=== PATIENT | male | born 1975 | race Caucasian/White ===

== ENCOUNTER 2022-03-30 13:10 | Emergency (ER) | payer OTHER, SELFPAY ==
--- NOTE | ~2022-03-30 | XR_ITS ---
EXAMINATION: XR hand RT min 3V DATE: 03/30/2022 13:50 INDICATION: Right hand second digit laceration. TECHNIQUE: 3 views of right hand were obtained. COMPARISON: None. FINDINGS: Bone alignment is normal. No fracture. Joint spaces are normal. There is soft tissue swelli ng of the distal second digit. There is a 1 mm density dorsal and radial to base of second middle pha lanx. IMPRESSION: 1. 1 mm density dorsal and radial to base of second middle phalanx, which may be a foreign body or dy strophic calcification. Reviewed, dictated and finalized at location A. IMPRESSION: 1. 1 mm density dorsal and radial to base of second middle phalanx, which may b e a foreign body or dystrophic calcification.
[2022-03-30 13:25] VITALS: BP 143/98; PULSE 81; RESP 16; TEMP 36.6; O2SAT 98
--- NOTE | 2022-03-30 14:05 | ED.SKABFB ---
HPI - Skin/Abscess/Foreign Bdy General Chief complaint: Skin/Abscess/Foreign Body Stated complaint: finger infection Time Seen by Provider: 03/30/22 13:24 History of Present Illness HPI narrative: This is a 46-year-old male denies past medical history, presenting emergency department with swelling, erythema and pain of the right first finger. He states 2 weeks ago he cut the finger on an unknown object. Since then it has intermittently swollen and become erythematous. The past few days has become significantly more swollen and is now draining pus from of the laceration. 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 He does not know when he last had a tetanus shot. Related Data Allergies Allergy/AdvReac Type Severity Reaction Status Date / Time Penicillins Allergy Severe Hives / Verified 03/30/22 13:28 Red Face Review of Systems Review of Systems: CONSTITUTIONAL: Denies fever, chills, or sweats. EYES: Denies visual changes, redness, or discharge. ENT: Denies rhinorrhea, congestion, sore throat, or otalgia. CARDIOVASCULAR: Denies chest pain, palpitations, or edema. RESPIRATORY: Denies cough or dyspnea. GASTROINTESTINAL: Denies abdominal pain, nausea, vomiting, or diarrhea. GENITOURINARY: Denies dysuria or hematuria. SKIN: Denies rash or itching. MUSCULOSKELETAL: +Right index finger pain, erythema and swelling. Denies back pain, joint pain, or myalgia. NEUROLOGIC: Denies headache, numbness, dizziness, or weakness. PSYCHIATRIC: Denies anxiety or depression. Exam Narrative: GENERAL: Well-appearing, well-nourished, appears anxious HEAD: Normocephalic, atraumatic. EYES: PERRLA and EOMI. ENT: Nares clear, no rhinorrhea or epistaxis. Mucous membranes moist. Oropharynx without tonsillar hypertrophy exudate or other lesions CHEST: Clear to auscultation. No respiratory distress. No wheezes rales or rhonchi HEART: Regular rate and rhythm. No murmur heard. Normal peripheral pulses. ABDOMEN: Soft, nontender, nondistended, normal active bowel sounds. EXTREMITIES: Erythematous, swollen right index finger with laceration over the dorsal aspect with small amount of purulent drainage. Finger is tender to passive extension. Otherwise normal range of motion. no edema. SKIN: Warm, dry, no rash. NEURO: No focal deficits. Alert and oriented x3. PSYCH: Normal mood and affect. Course Course Emergency Course: 15:10 - Discussed patient with [facility] Hand Surgery however, they are on time-critical diversion. 15:38 - Discussed patient with [facility] Plastic Surgery (Dr. Wilson) who accepts transfer for evaluation. Discussed patient with Vital Signs Vital signs: Vital Signs Temperature 98 F 03/30/22 13:25 Pulse Rate 81 03/30/22 13:25 Respiratory Rate 16 03/30/22 13:25 Blood Pressure 143/98 H 03/30/22 13:25 Pulse Oximetry 98 03/30/22 13:25 Oxygen Delivery Room Air 03/30/22 13:25 Temperature 98 F 03/30/22 13:25 Pulse Rate 75 03/30/22 17:00 Respiratory Rate 18 03/30/22 17:00 Blood Pressure 169/103 H 03/30/22 17:00 Pulse Oximetry 100 03/30/22 17:00 Oxygen Delivery Room Air 03/30/22 13:25 Transfer Transfered to: [facility] Transportation: Other (POV) Transfer rationale: Need for hand surgery evaluation Accepting physician: Dr. Wilson (hand surgeon), Dr. HAYS - Skin/Abscess/Foreign Bdy MDM Narrative Medical decision making narrative: Plan: Labs, pain control, imaging, tetanus vaccination, antibiotics, reassess Differential Diagnosis Differential diagnosis: Likely abscess of skin or subcutaneous tissue and other (Flexor tenosynovitis, septic arthritis, other) Lab Data Labs: Lab Results 03/30/22 03/30/22 Range/Units 15:39 15:39 ESR 38 H (0-20) mm/hr C-Reactive Protein 2.0 H (<1.0) mg/dL Discharge Plan Discharge Clinical Impression: Abscess of skin or subcutaneous tissue, Tenosynovitis of finger Patient Disposition: Acute Care Hospital Condition: S
[2022-03-30] MEDS: TETANUS,DIPHTHERIA,AC PERTUSSIS ADULT (0.5 ML) BOOSTRIX IM (14:15)
[2022-03-30 16:12] LABS: Erythrocyte Sedimentation Rate 38 mm/hr (0-20)
[2022-03-30 17:00] VITALS: BP 169/103; PULSE 75; RESP 18; O2SAT 100
== END 2022-03-30 17:03 | disposition short-term general hospital (02) ==
PROVIDERS: Emergency Provider Preventive Medicine Aerospace Medicine
DX: L02.511 Cutaneous abscess of right hand (principal); S63.610A Unspecified sprain of right index finger, initial encounter; Z23 Encounter for immunization; W26.9XXA Contact with unspecified sharp object(s), initial encounter
CPT/HCPCS: 36415; 73130; 85652; 86140; 90471; 90715; 96365; 96367; 99284; J0131; J0696